=== PATIENT | female | born 1955 | race Caucasian/White ===

== ENCOUNTER → 2020-12-12 14:58 | Outpatient (BNVA) | payer MEDICARE, OTHER, SELFPAY | PROVIDERS: Family Provider Nurse Practitioner; PCP Nurse Practitioner Family; Visit Provider Specialist | DX: R29.818 Other symptoms and signs involving the nervous system (principal); G56.03 Carpal tunnel syndrome, bilateral upper limbs | CPT/HCPCS: 95910 ==

== ENCOUNTER 2021-02-03 08:50 | Outpatient (CLI) | payer MEDICARE, OTHER, SELFPAY ==
[2021-02-03 09:06] VITALS: BMI 33.4
--- NOTE | 2021-02-03 09:44 | ECG_ITS ---
[facility] Test Date: 2021-02-03 Pat Name: Dori Willis Department: Room: Gender: Female Plan Checker: : 1955 Requested By: Suhail An Order Number: [id number] Mario MD: Suhail An M.D. Interpretive Statements NAME OF STUDY: EXERCISE SESTAMIBI STRESS TEST INDICATION: [Chest Pain] EXERCISE DATA: The patient was exercised by Jeevan protocol. Baseline heart rate was [] beats per minute. Baseline blood pressure was 152/86 millimeters of mercury. Target heart rate was 131 beats per minute. Maximum heart rate achieved was 145, which was 110% of the target heart rate. Maximum blood pressure was 221/71 millimeters of mercury. Total exercise time was 4 minutes 27 seconds. Maximum METs achieved was 7, maximum VO2 was 24.5. The reason for ending the test was completion of the protocol. The patient complained of intraprocedural shortness of breath during the stress test, which then resolved at the end of the test. ELECTROCARDIOGRAM: BASELINE: Showed sinus rhythm, normal axis, no significant ST-T changes at the baseline noted. [] EXERCISE: At the peak exercise level, [] No significant ST-T changes suggestive of ischemia noted. [] RECOVERY: During the recovery period, heart rate dropped appropriately. No significant ST-T changes in the recovery suggestive of ischemia noted. [] CONCLUSION: 1. Exercise capacity fair 2. Heart rate response was appropriate 3. Blood pressure response was appropriate 4. Symptoms not suggestive of ischemia. 5. Electrocardiogram portion of the stress test was not suggestive of ischemia. 6. Nuclear scan will be documented separately. Electronically Signed On 02-11-2021 12:33:22 CDT by Suhail An M.D. [id number]
--- NOTE | 2021-02-03 09:44 | NMCV_ITS ---
NM jensen perf SPECT r/s* [id number] Dori Willis Age: 65 Gender: F : 1955 Exam Date: 02/03/2021 09:54 Ordering Phys: Suhail An M.D ([email or web address]) Technologist: JAYLAN Lam Exam Location: [facility] Indications: Chest pain STRESS TEST Please see separate stress test report in [facility] for full findings IMAGE PROTOCOL Rest/Stress 1 Exercise Day Radiopharmaceutical Dose (mCi) Administration Site Administered by Rest: Tc-99m 10.7 IV JAYLAN Lam Sestamibi Stress:Tc-99m 32.9 IV JAYLAN Lam Sestamilevi Rest: 03-Feb-2021 60 Discovery 630 Stress: 03-Feb-2021 45 Discovery 630 Radiopharmaceutical was injected at 87 % maximum heart rate. Images obtained in supine and prone position. SPECT RESULTS Technical Quality: Excellent Raw Data Analysis: Breast attenuation Image Corrections: No attenuation or motion correction applied Summed Stress Score: 0 Summed Rest Score: 0 Summed Difference Score: 0 PERFUSION FINDINGS SPECT images demonstrate homogeneous tracer distribution throughout the myocardium. FUNCTIONAL RESULTS (calculated via Gated SPECT) Stress Image LV EF (%): 89 Stress EDV (mL):47 TID: 0.61 Stress ESV (mL):5 FUNCTIONAL FINDINGS: There is normal left ventricular systolic function. IMPRESSIONS 1. Normal myocardial perfusion imaging with no evidence of ischemia 2. LV systolic function is normal Suhail An MD (Electronically Signed) Final Date: 03 February 2021 13:22 S
[2021-02-03 10:49] VITALS: BP 169/86; PULSE 86
== END 2021-02-03 08:51 | disposition home or self-care (01) ==
PROVIDERS: PCP Nurse Practitioner Family; Visit Provider Internal Medicine
DX: R07.9 Chest pain, unspecified (principal)
CPT/HCPCS: 78452; 93017; A9500

== ENCOUNTER → 2021-03-24 10:47 | Outpatient (BNVA) | payer MEDICARE, OTHER, SELFPAY | PROVIDERS: PCP Nurse Practitioner Family; Visit Provider Orthopaedic Surgery | DX: Z01.812 Encounter for preprocedural laboratory examination (principal); Z20.822 Contact with and (suspected) exposure to COVID-19 | CPT/HCPCS: 87635 ==

== ENCOUNTER 2021-03-30 07:06 | Day surgery (SDC) | payer MEDICARE, OTHER, SELFPAY ==
[2021-03-29 15:54] VITALS: BMI 31.9
[2021-03-30 07:25] VITALS: BP 123/84; PULSE 80; RESP 16; TEMP 36.8; O2SAT 99
--- NOTE | 2021-03-30 08:10 | ANES.PREANE2 ---
Pre-Anesthetic Assessment Pre-Anesthetic Assessment: Height/Weight: Height 1.73 m Weight 95.254 kg Temp Pulse Resp BP Pulse Ox 98.2 F 80 16 123/84 99 03/30/21 07:25 03/30/21 07:25 03/30/21 07:25 03/30/21 07:25 03/30/21 07:25 Preop Diagnosis: Right carpal tunnel syndrome Proposed Procedure: Operation Date: 03/30/21 09:05 Proposed Procedures p right Carpal Tunnel Release 78653 g56.03(Right) - Carmine He MD Familial anesthetic complications: None Was Beta Aleida taken within 24 hours: N/A Was Clonidine taken within 24 hours: N/A Last intake: Intake Last Liquid Date 03/29/21 Last Liquid Time 17:00 Last Solid Date 03/29/21 Last Solid Time 16:00 Social: Social History: No alcohol and No tobacco Exam: Pre-Anes Outpt Exam: alert, oriented x 3, clear to auscultation bilaterally and regular rate & rhythm Airway: Cervical ROM: WNL MP: 3 Dentition: Full CV/HEM: CV/HEM: HTN Comments: Angina - but negative cardiac work up, cleared for CTR by Dr. An Metabolic: Metabolic: Hyperlipidemia and Morbid obesity Anesthetic Plan: ASA status: 2 Anesthesia: MAC and Regional (specify below) (asha block) Risk of > 500 ml blood loss (7ml/kg in children): No PFSH Anesthesia PFSH: Medical History Bilateral carpal tunnel syndrome Hyperlipidemia Hypertension Family History Other Hypertension Social History Smoking and tobacco status: never smoked Alcohol intake: never Data Anesthesia Cardiac Studies: No Data to Display
[2021-03-30] MEDS: sodium chloride 0.9% 1,000 ML 30 ML IV (08:40)
--- NOTE | 2021-03-30 09:08 | P.HP_ITS ---
Same Day Surgery H&P Indication for Procedure/HPI DATE OF PROCEDURE: March 30, 2021 CHIEF COMPLAINT/INDICATIONFOR SURGICAL PROCEDURE: Bilateral hand numbness for many years. EMG nerve conduction studies revealed moderately severe carpal tunnel PREOP DIAGNOSIS: Right carpal tunnel syndrome PLANNED PROCEDRUE: Operation Date: 03/30/21 09:05 Proposed Procedures p right Carpal Tunnel Release 08432 g56.03(Right) - Carmine He MD Medications/Allergies* Home Medications Medication Instructions Recorded Confirmed Type aspirin 81 mg tablet,delayed 81 mg PO DAILY 12/12/20 03/30/21 History release hydrochlorothiazide 50 mg tablet 50 mg PO DAILY 12/12/20 03/30/21 History losartan 50 mg tablet 50 mg PO DAILY 12/12/20 03/30/21 History simvastatin 40 mg tablet 40 mg PO DAILY 12/12/20 03/30/21 History estradiol 0.25 mg TOPICAL PC 03/29/21 03/30/21 History Allergies/Adverse Reactions Allergy/AdvReac Type Severity Reaction Status Date / Time Penicillins Allergy Severe rash Verified 03/29/21 15:50 Pertinent History/Comorbid Conditions* Medical History (Updated 02/20/21 @ 19:26 by Suhail An M.D) Bilateral carpal tunnel syndrome Hyperlipidemia Hypertension Family History (Updated 01/08/21 @ 21:42 by Suhail An M.D) Hypertension Social History Smoking and tobacco status: never smoked Alcohol intake: never Pertinent Exam Findings alert, oriented x 3, clear to auscultation bilaterally, regular rate & rhythm and operative site marked Recommendations Surgery/Procedure today Coding Level of Care Code Acute [employer] Service Rater for Heather Potts
[2021-03-30 09:54] VITALS: BP 191/83; PULSE 71; RESP 12; TEMP 36.1; O2SAT 95
--- NOTE | 2021-03-30 09:57 | P.OP_ITS ---
Operative Report Date of procedure: March 30, 2021 Pre-op Diagnosis: Right carpal tunnel syndrome Post-op diagnosis: same Post-op Findings: Same Procedure Done: Right carpal tunnel release Pathology: none sent Surgeon: Carmine He Anesthesia: Nerve Block ([place] block) Estimated blood loss (mL): 2 Tourniquet time (min): 20 Condition: stable Disposition: PACU Procedure: Patient was taken to the operating room and anesthesia provided by the anesthesia service. She was prepped and draped with the arm exposed. A timeout was performed. A 3 cm long incision was made in line with the fourth ray from the distal edge of the carpal tunnel extending proximally. The subcutaneous fat and palmar fascia was divided with a scalpel blade. Under loupe magnification the ulnar neurovascular bundle was identified distally. A hemostat could be passed under the transverse carpal ligament allowing the distal 25% to be divided. A slotted guide was then passed beneath the transverse carpal ligament and the middle 50% divided. Blunt scissors were then passed over the guide freeing the proximal ligament. The tourniquet was deflated. Hemostasis provided with electrocautery. Wound edges were infiltrated with 10 cc of a half percent Marcaine solution. Skin edges were reapproximated with 3-0 Prolene. Sterile dressings were applied. The patient was taken to the recovery room in stable condition
--- NOTE | 2021-03-30 09:59 | P.PCN_ITS ---
PACU note PACU note: VSS, Good respiratory effort, report to MARKETING ACCOUNT EXECUTIVE Post-Anesthesia Exam: awake
--- NOTE | 2021-03-30 09:59 | PM.PACU ---
PACU note PACU note: VSS, Good respiratory effort, report to [employer] Post-Anesthesia Exam: awake
[2021-03-30 10:00] VITALS: BP 110/60; PULSE 70; RESP 17; O2SAT 95
[2021-03-30 10:05] VITALS: BP 123/71; PULSE 70; RESP 16; TEMP 36.5; O2SAT 95
[2021-03-30 10:22] VITALS: BP 128/79; PULSE 74; RESP 16; TEMP 36.7; O2SAT 98
[2021-03-30] MEDS: HYDROcodone-acetaminophen 5-325 mg Tablet 1 TAB PO (10:55)
--- NOTE | 2021-03-30 14:48 | ANE.PACU2 ---
Inpatient post-anesthesia follow up: Airway intact: Yes Vital signs: Temperature 98.0 F Pulse Rate 74 Respiratory Rate 16 Blood Pressure 128/79 Pulse Oximetry 98 Oxygen Delivery Me thod Room Air Oxygen Flow Rate Fraction of Inspir ed Oxygen Hydration adequate: Yes Nausea and vomiting: No Pain level: 2 Mental status: Baseline
== END 2021-03-30 11:05 | disposition home or self-care (01) ==
PROVIDERS: PCP Nurse Practitioner Family; Visit Provider Orthopaedic Surgery
PROC: (CPT 64721; principal; 2021-03-30 08:55)
DX: G56.01 Carpal tunnel syndrome, right upper limb (principal); I10 Essential (primary) hypertension; E78.5 Hyperlipidemia, unspecified; E66.01 Morbid (severe) obesity due to excess calories; Z68.31 Body mass index [BMI] 31.0-31.9, adult
CPT/HCPCS: 64721; J0690; J2704; J3010; J3490; J7030

== ENCOUNTER → 2024-04-29 13:56 | Outpatient (BNVA) | payer MEDICARE, OTHER, SELFPAY | PROVIDERS: PCP Nurse Practitioner Family; Referring Provider Nurse Practitioner Family; Visit Provider Internal Medicine Critical Care Medicine | DX: J45.20 Mild intermittent asthma, uncomplicated (principal); J98.4 Other disorders of lung; J98.6 Disorders of diaphragm; R06.09 Other forms of dyspnea; E66.9 Obesity, unspecified; Z68.31 Body mass index [BMI] 31.0-31.9, adult | CPT/HCPCS: 99214 ==

== ENCOUNTER 2025-04-27 10:40 | Outpatient (CLI) | payer MEDICARE, OTHER, SELFPAY ==
--- NOTE | 2025-04-27 10:40 | MM_ITS ---
WS: [id number] BILATERAL 3D TOMOSYNTHESIS DIGITAL SCREENING MAMMOGRAPHY WITH CAD CLINICAL INFORMATION: SCREENING HISTORY: Screening mammogram. No current complaints. COMPARISON: 2022 TECHNIQUE: Bilateral CC and MLO views. FINDINGS: Scattered fibroglandular densities bilaterally. No suspicious focal mass, asymmetry, calcifications, or architectural distortion. No evidence of malignancy. Punctate and lucent centered calcifications. Stable LEFT breast nodularity MM/MM scr BI tomosynthesis [id number] IMPRESSION: DENSITY: There are scattered areas of fibroglandular density. BI-RADS: 2 - Benign. FOLLOW UP: 1 Year Follow-up Recommend return to annual screening mammography.
== END 2025-04-27 10:41 | disposition home or self-care (01) ==
PROVIDERS: PCP Nurse Practitioner Family; Visit Provider Nurse Practitioner Family
DX: Z12.31 Encounter for screening mammogram for malignant neoplasm of breast (principal); N63.20 Unspecified lump in the left breast, unspecified quadrant
CPT/HCPCS: 77063; 77067